=== PATIENT | female | born 1990 | race African-American/Black ===

== ENCOUNTER 2018-06-02 19:56 | Emergency (ER) | payer OTHER ==
[~2018-06-02] VITALS: Ht 152.4 cm; Wt 59.0 kg
[2018-06-02 20:00] VITALS: BP_SYST 138
[2018-06-02] MEDS ORDERED: DIPHENHYDRAMINE HCL 25 MG CAPSULE PO ONE (20:30)
[2018-06-02] MEDS ORDERED: ONDANSETRON 4 MG ODT TAB PO ONE (20:30)
[2018-06-02] MEDS ORDERED: FAMOTIDINE 20 MG TABLET PO ONE (20:30)
[2018-06-02 21:10] VITALS: BP_SYST 125
== END 2018-06-02 21:10 | disposition home or self-care (01) ==
LOC: SED 19:56
DX: T78.40XA Allergy, unspecified, initial encounter (principal); R10.9 Unspecified abdominal pain; L50.9 Urticaria, unspecified; R03.0 Elevated blood-pressure reading, without diagnosis of hypertension; X58.XXXA Exposure to other specified factors, initial encounter
CPT/HCPCS: 99284; Q0162; Q0163

== ENCOUNTER 2020-01-19 15:54 | Emergency (ER) | payer OTHER, SELFPAY ==
[~2020-01-19] VITALS: Ht 157.5 cm; Wt 63.5 kg
[2020-01-19 15:57] VITALS: BP_SYST 135
[2020-01-19 17:10] VITALS: BP_SYST 135
== END 2020-01-19 17:10 | disposition home or self-care (01) ==
LOC: EEVIPCON 15:54 → SED 15:54
DX: R53.1 Weakness (principal); R63.0 Anorexia; U07.1 COVID-19; R05 Cough; Z91.018 Allergy to other foods
CPT/HCPCS: 36415; 86710; 99283; U0002

== ENCOUNTER 2020-03-15 12:20 | Outpatient (CLI) | payer OTHER, SELFPAY | END 2020-03-15 21:07 | disposition home or self-care (01) | LOC: SLB 12:20 | PROVIDERS: ATTEND Internal Medicine | DX: U07.1 COVID-19 (principal) | CPT/HCPCS: U0003-CS ==

== ENCOUNTER 2020-04-15 20:02 | Emergency (ER) | payer OTHER, SELFPAY ==
[~2020-04-15] VITALS: Ht 152.4 cm; Wt 63.5 kg
[2020-04-15 20:10] VITALS: BP_SYST 138
--- NOTE | 2020-04-15 20:14 | NUR ---
Patient to ER bed H1 to gown for evaluation. Side rails up.
--- NOTE | 2020-04-15 20:15 | NUR ---
Patient came to ER. C/O Needlestick and Medical Clearance x today. Patient work in ICU , Patient had needlestick left thump at 1800 PM while injected insulin for her patient. Hx Positive Covid-19 Patient came to have blood test as fingerstick incident protocol. A/O,X4, denies left thump pain. Patient states "didn't get insulin, happening after gave all medication."
--- NOTE | 2020-04-15 20:27 | NUR ---
ER Dr. Lombardo at bedside examining patient.
--- NOTE | 2020-04-15 20:30 | NUR ---
Blood for labwork drawn from perforator . Patient tolerated well.
[2020-04-15 20:54] VITALS: BP_SYST 138
--- NOTE | 2020-04-15 20:54 | NUR ---
Patient given written and verbal discharge instructions and verbalizes understanding. ER MD discussed with patient the results and treatment provided. Patient in stable condition. ID arm band removed. NO Rx given. Patient educated on pain management and to follow up with PMD. Pain Scale 0/10. Opportunity for questions provided and answered.
== END 2020-04-15 20:54 | disposition home or self-care (01) ==
LOC: SED 20:02
DX: R20.2 Paresthesia of skin (principal); W46.1XXA Contact with contaminated hypodermic needle, initial encounter
CPT/HCPCS: 36415; 86704; 86706; 86803; 87340; 99283

== ENCOUNTER 2020-05-27 07:22 | Outpatient (CLI) | payer OTHER ==
[2020-05-28 06:07] LABS: HEPATITIS B CORE AB, TOTAL Negative (Negative); HEPATITIS B SURFACE AG Negative (Negative); HEPATITIS C VIRUS AB <0.1 s/co ratio (0.0-0.9)
== END 2020-05-27 19:38 | disposition home or self-care (01) ==
LOC: SLB 07:22
PROVIDERS: ATTEND Internal Medicine Hospice and Palliative Medicine
DX: T14.8XXA Other injury of unspecified body region, initial encounter (principal); W26.8XXA Contact with other sharp object(s), not elsewhere classified, initial encounter; Y93.89 Activity, other specified; Y92.89 Other specified places as the place of occurrence of the external cause; Y99.8 Other external cause status
CPT/HCPCS: 36415; 86704; 86706; 86803; 87340

== ENCOUNTER 2020-08-23 07:23 | Outpatient (CLI) | payer OTHER ==
[2020-08-24 05:10] LABS: HEPATITIS B CORE AB, TOTAL Negative (Negative); HEPATITIS B SURFACE AG Negative (Negative); HEPATITIS C VIRUS AB <0.1 s/co ratio (0.0-0.9)
== END 2020-08-23 20:26 | disposition home or self-care (01) ==
LOC: SLB 07:23
PROVIDERS: ATTEND Internal Medicine Hospice and Palliative Medicine
DX: T14.90XA Injury, unspecified, initial encounter (principal); W46.0XXA Contact with hypodermic needle, initial encounter; Y93.89 Activity, other specified; Y92.89 Other specified places as the place of occurrence of the external cause; Y99.8 Other external cause status
CPT/HCPCS: 36415; 86704; 86706; 86803; 87340

== ENCOUNTER 2021-03-23 16:17 | Outpatient (CLI) | payer OTHER ==
[2021-03-25 06:06] LABS: HEPATITIS B CORE AB, TOTAL Negative (Negative); HEPATITIS B SURFACE AG Negative (Negative); HEPATITIS C VIRUS AB <0.1 s/co ratio (0.0-0.9)
== END 2021-03-23 20:28 | disposition home or self-care (01) ==
LOC: SLB 16:17
PROVIDERS: ATTEND Internal Medicine Hospice and Palliative Medicine
DX: T14.90XA Injury, unspecified, initial encounter (principal); W46.0XXA Contact with hypodermic needle, initial encounter; Y93.89 Activity, other specified; Y92.89 Other specified places as the place of occurrence of the external cause; Y99.8 Other external cause status
CPT/HCPCS: 36415; 86704; 86706; 86803; 87340